=== PATIENT | male | born 1995 | race Caucasian/White ===

== ENCOUNTER 2017-05-28 13:30 | Emergency (ER) | payer SELFPAY ==
[~2017-05-28] VITALS: Ht 177.8 cm; Wt 77.1 kg
--- NOTE | 2017-05-28 13:40 | Emergency Room Report ---
History of Present Illness General Chief Complaint: Seizure Source: Patient, EMS Present Illness HPI Patient presents emergency department today complaining of a seizure. Patient has a history of seizures. Patient is traveling from [place]. Patient's file conversion operator noticed that the patient has not been taking medications for seizures although in the past he seemed to have taken them before. She does not know what medications has taken. Patient has had 3 seizures today for swallowing he was in bed at 9:00 today apparently they are self limited although he is never quite back to normal but is conversive afterwards. The seizure as described as clonic tonic to start with one arm tensing up. No history of tongue biting or urinary incontinence. No other complaints are noted. Symptoms are noted to be severe. Patient does not usually drink alcohol but had a lot of drinks last night per report. Patient denies any drug use. Symptoms noted to be severe. No other modifying factors. No other associated signs and symptoms. No other complaints were noted. Allergies: Coded Allergies: UNABLE TO ASSESS (Unverified , 05/28/17) Patient History Past Medical History: other - seizure Past Surgical History: none Pertinent Family History: none Social History: Reports: alcohol use Reviewed Nursing Documentation: PMH: Agreed, PSxH: Agreed Nursing Documentation-PMH Past Medical History: No History, Except For Hx Seizures: Yes Review of Systems All Other Systems: negative except mentioned in HPI Physical Exam Vital Signs Date Time Temp Pulse Resp B/P (MAP) Pulse Ox O2 Delivery O2 Flow Rate FiO2 05/28/17 13:30 98.2 95 18 150/80 98 Room Air 98.2 Sp02 EP Interpretation: reviewed, normal General Appearance: alert, lethargic Head: normocephalic, atraumatic Eyes: bilateral eye normal inspection ENT: normal ENT inspection, hearing grossly normal, moist mucus membranes Neck: normal inspection, full range of motion, supple, no bony tend Respiratory: normal inspection, lungs clear, normal breath sounds, no respiratory distress, no retraction, no wheezing Cardiovascular #1: regular rate, rhythm, no edema Gastrointestinal: normal inspection, normal bowel sounds, non tender, soft, no guarding, no hernia Genitourinary: no CVA tenderness Musculoskeletal: normal inspection, back normal, normal range of motion Neurologic: alert, responsive, motor strength/tone normal, other - confused Psychiatric: depressed affect Skin: normal inspection, normal color, no rash Medical Decision Making EKG Diagnostic Results Rate: normal Rhythm: NSR ST Segments: no acute changes Rhythm Strip Diag. Results Rate: 90s Rhythm: NSR, no PVC's, no ectopy Last Vital Signs Date Time Temp Pulse Resp B/P (MAP) Pulse Ox O2 Delivery O2 Flow Rate FiO2 05/28/17 13:30 98.2 95 18 150/80 98 Room Air 98.2 Status: improved Disposition: HOME, SELF-CARE Condition: Stable CHARLETTE FENG M.D. May 28, 2017 13:40
[2017-05-28] MEDS ORDERED: LORazepam Inj 2mg/ml 1ml IV ONE (13:45)
[2017-05-28 13:59] LABS: HEMATOCRIT 57.3 % (42.0-52.0); MEAN CORPUSCULAR VOLUME 89 FL (80-99); PLATELET COUNT 379 K/UL (150-450); RED BLOOD COUNT 6.43 M/UL (4.70-6.10); RED CELL DISTRIBUTION WIDTH 11.5 % (11.6-14.8)
[2017-05-28 14:03] VITALS: BP 125/72
[2017-05-28 14:03] LABS: HEMOGLOBIN 18.9 G/DL (14.2-18.0); WHITE BLOOD COUNT 30.6 K/UL (4.8-10.8)
--- NOTE | 2017-05-28 14:07 | Diagnostic Imaging Report ---
Indication: Cough Comparison: None A single view chest radiograph was obtained. Findings: Cardiomediastinal appearance is within normal limits for age. Lungs clear with low volume. Pulmonary vascularity is appropriate. The diaphragmatic contour is smooth and costophrenic angles are sharp. No pleural effusions are identified. The bones are unremarkable. Impression: No acute findings
[2017-05-28 14:12] LABS: ANION GAP 28 mmol/L (5-15); BLOOD UREA NITROGEN 13 mg/dL (7-18); CALCIUM 9.6 MG/DL (8.5-10.1); CARBON DIOXIDE 11 MMOL/L (21-32); CHLORIDE 100 MMOL/L (98-107); CREATININE 1.8 MG/DL (0.55-1.30); POTASSIUM 4.4 MMOL/L (3.5-5.1); SODIUM 139 MMOL/L (136-145)
[2017-05-28 14:22] LABS: ALANINE AMINOTRANSFERASE 29 U/L (12-78); ALBUMIN/GLOBULIN RATIO 1.4 (1.0-2.7); ALKALINE PHOSPHATASE 117 U/L (46-116); ASPARTATE AMINO TRANSFERASE 26 U/L (15-37); BILIRUBIN,DIRECT 0.2 MG/DL (0.0-0.3); BILIRUBIN,TOTAL 1.5 MG/DL (0.2-1.0); CREATINE KINASE 254 U/L (26-308)
--- NOTE | 2017-05-28 14:41 | Diagnostic Imaging Report ---
Indication: Altered mental status Technique: Contiguous 5 mm thick transaxial imaging of the head obtained in a Siemens Sensation [address] scanner. Soft tissue and bone windows generated. Automatic Exposure Control was utilized. Total Dose length Product (DLP): 1358.[address] Dose Index Volume (CTDIvol): 70.38 mGy Comparison: none Findings: The size and configuration of the cortical sulci, basal cisterns, and ventricles are within normal limits for age. There is no mass effect, midline shift, or edema identified. There is no evidence of acute hemorrhage or abnormal intra-axial or extra-axial fluid collections. The bones and soft tissues are unremarkable. Impression: No mass effect, edema or acute bleed. The CT scanner at [facility] is accredited by the [employer] and the scans are performed using dose optimization techniques as appropriate to a performed exam including Automatic Exposure control.
[2017-05-28] MEDS ORDERED: levETIRAcetam 1,000mg/NS100ml 100 ML IVPB ONE (15:30)
[2017-05-28] MEDS ORDERED: KEPPRA500 MG ORAL (15:32)
[2017-05-28 16:51] VITALS: BP 122/76
--- NOTE | 2017-06-09 16:56 | Cardiology Report ---
APPROVED REPORT EKG Measurement Heart [id number] MD [id number] Normal sinus rhythm Normal ECG
== END 2017-05-28 16:46 | disposition home or self-care (01) ==
LOC: EDBD 13:30 → EMR 13:50
DX: G40.909 Epilepsy, unspecified, not intractable, without status epilepticus (principal); Z91.14 Patient's other noncompliance with medication regimen; R41.82 Altered mental status, unspecified; R05 Cough
CPT/HCPCS: 36415; 70450; 71045; 80053; 80184; 80185; 80307; 82248; 82550; 82962; 85007; 85025; 93005; 96374; 96375; 99284; J1953